=== PATIENT | female | born 1960 | race Hispanic/Latino ===

== ENCOUNTER 2018-07-21 17:40 | Emergency (ER) | payer BC ==
[~2018-07-21] VITALS: Ht 165.1 cm; Wt 80.3 kg
[~2018-07-21 17:40] MED LIST: ALPRAZOLAM2 MG PO; ASPIRIN PO; CRESTOR10 MG PO; DIOVAN80 MG PO; GLIPIZIDE10 MG PO; JANUVIA100 MG PO; LANTUS100 UNITS/ SQ; METFORMIN HCL1000 MG PO; METOPROLOL PO; OMEPRAZOLE20 M1 PO
[2018-07-21] MEDS ORDERED: SODIUM CHLORIDE 0.9% 1000ML 1,000 ML IV SCH (18:00)
[2018-07-21] MEDS ORDERED: KETOROLAC TROMETHAMINE 30 MG/ML VIAL IV NR (18:00)
[2018-07-21] MEDS ORDERED: PROMETHAZINE HCL (IM) 25 MG/ML VIAL IM ONE (18:15)
[2018-07-21] MEDS ORDERED: BUTALB-ACETAMI1 EACH PO (18:32)
[2018-07-21] MEDS ORDERED: NAPROSYN500 MG PO (18:32)
[2018-07-21] MEDS ORDERED: PROMETHAZINE 12.5MG/ NACL 0.9% 12.5 MG/50 ML BAG IV ONE (18:45)
[2018-07-21] MEDS ORDERED: ONDANSETRON ODT8 MG PO (18:47)
--- NOTE | 2018-07-21 19:06 | Diagnostic Imaging Report ---
History: Headaches Comparison studies: None Technique: Axial images were obtained from the skull base to the vertex. Coronal and sagittal reconstructions obtained from the axial data. Dose modulation, iterative reconstruction, and/or weight based adjustment of the mA/kV was utilized to reduce the radiation dose to as low as reasonably achievable. Findings: Scalp/skull: No abnormalities. No fractures, blastic or lytic lesions. Extra-axial spaces: No masses. No fluid collections. Brain sulci: Mildly prominent at the frontoparietal convexities. Ventricles: Normal in size and configuration. No hydrocephalus. Parenchyma: No abnormal densities. No masses, hemorrhage, acute or chronic cortical vascular insults. Sellar/suprasellar region: No abnormalities Craniocervical junction: Patent foramen magnum. No Chiari one malformation. IMPRESSION: No acute abnormalities . Signed by: DR Esequiel Chen M.D. on 07/21/2018 7:02 PM
== END 2018-07-21 19:40 | disposition home or self-care (01) ==
LOC: FSED 17:40
DX: G44.89 Other headache syndrome (principal); I10 Essential (primary) hypertension
CPT/HCPCS: 70450; 99284; J2550; J7030

== ENCOUNTER → 2022-03-12 | Outpatient (CLI) | payer BC ==
[~2022-03-12] MED LIST changes: +BUTALB-ACETAMI1 EACH PO; +NAPROSYN500 MG PO; +ONDANSETRON ODT8 MG PO
== END ==
LOC: MAMMO 08:56
PROVIDERS: ATTEND Obstetrics & Gynecology
DX: Z12.31 Encounter for screening mammogram for malignant neoplasm of breast (principal)
CPT/HCPCS: 77067

== ENCOUNTER 2025-01-31 10:31 | Emergency (ER) | payer BC, MEDICARE ==
[~2025-01-31] VITALS: Ht 149.9 cm; Wt 81.6 kg
[~2025-01-31 10:31] MED LIST changes: +AMLODIPINE BESYL5 MG PO; +AZITHROMYCIN PO; +BACTRIM DS TAB1 EACH PO; +CETIRIZINE HCL10 MG; +COMBIVENT RESPIM4 GM IH; +COZAAR25 MG PO; +CYCLOBENZAPRINE5 MG PO; +DEXAMETHASONE4 MG PO; +FAMOTIDINE20 MG PO; +FLUCONAZOLE100 MG PO; +GLUCOTROL XL10 MG PO; +HUMALOG MI100 UNIT/2 SQ; +METOPROLOL SUCC50 MG PO; +MULTI-VITAMIN1 EACH PO; +NEURONTIN100 MG PO; +OZEMPIC1 MG/0.71 SC; +XANAX0.25 MG PO
[2025-01-31 10:45] VITALS: TEMP 98.8
[2025-01-31 11:40] VITALS: PULSE 77; RESP 18
[2025-01-31 12:02] LABS: BASOPHILS % 0.8 % (0.0-1.0); EOSINOPHILS % 1.7 % (0.0-6.0); LYMPHOCYTES % 34.8 % (18.0-39.1); MONOCYTES % 9.7 % (4.4-11.3); NEUTROPHILS % 52.6 % (38.7-80.0); RED CELL DISTRIBUTION WIDTH 13.2 % (11.7-14.4)
[2025-01-31 12:21] LABS: INR 0.94
[2025-01-31 12:30] LABS: EST GLOMERULAR FILTRATION RATE 96.0 ML/MIN (>=60)
[2025-01-31 13:26] VITALS: BP 129/64; PULSE 74; RESP 17; O2SAT 94
== END 2025-01-31 13:29 | disposition home or self-care (01) ==
LOC: ER 11:04
DX: R09.02 Hypoxemia (principal); R53.83 Other fatigue; E11.65 Type 2 diabetes mellitus with hyperglycemia; F41.9 Anxiety disorder, unspecified; E78.5 Hyperlipidemia, unspecified; K21.9 Gastro-esophageal reflux disease without esophagitis
CPT/HCPCS: 36415; 71045; 80053; 83880; 85025; 85610; 85730; 93005; 99284